=== PATIENT | male | born 1960 | race Caucasian/White ===

== ENCOUNTER → 2018-03-26 | Outpatient (CLI) | payer OTHER ==
[2018-03-26 13:48] LABS: APPEARANCE, URINE CLEAR (CLEAR); BACTERIA, URINE AUTO NEGATIVE (NEGATIVE); BILIRUBIN, URINE AUTO NEGATIVE (NEGATIVE); BLOOD, URINE BLOOD NEGATIVE (NEGATIVE); COLOR, URINE YELLOW (YELLOW); GLUCOSE, URINE (UA) AUTO NEGATIVE (NEGATIVE); KETONE, URINE AUTO NEGATIVE (NEGATIVE); LEUKOCYTE ESTERASE, URINE AUTO NEGATIVE (NEGATIVE); MUCUS, URINE SMALL (NEGATIVE); NITRITE, URINE AUTO NEGATIVE (NEGATIVE); PROTEIN, URINE AUTO NEGATIVE (NEGATIVE); RBC, URINE AUTO 0 /HPF (0-3); SQUAMOUS EPITHELIAL CELL UR AU 0 /HPF (0-6); UROBILINOGEN, URINE AUTO 0.2 mg/dL (0.0-2.0); WBC, URINE AUTO 1 /HPF (0-3)
[2018-03-26 14:31] LABS: PSA SCREENING 1.85 NG/ML (< 4.0)
== END ==
LOC: M SMT 11:45
DX: Z12.5 Encounter for screening for malignant neoplasm of prostate (principal); N41.0 Acute prostatitis
CPT/HCPCS: 84153

== ENCOUNTER → 2019-05-23 | Outpatient (REF) | payer OTHER | LOC: M LABSMT 13:48 | PROVIDERS: ATTEND Nurse Practitioner Women's Health | DX: Z12.5 Encounter for screening for malignant neoplasm of prostate (principal) ==

== ENCOUNTER → 2019-07-28 | Outpatient (CLI) | payer OTHER ==
[~2019-07-28] MED LIST: ISOVUE-370 76% 100ML VIAL (Q9967) As Ordered ONE
--- NOTE | 2019-07-28 08:51 | REPVR ---
PROCEDURE INFORMATION: Exam: CT Neck With Contrast Exam date and time: 07/28/2019 8:13 AM Age: 58 years old Clinical indication: Pain; Other: Benign neoplasm of tonsil TECHNIQUE: Imaging protocol: Computed tomography images of the neck with intravenous contrast. Radiation optimization: All CT scans at this facility use at least one of these dose optimization techniques: automated exposure control; mA and/or kV adjustment per patient size (includes targeted exams where dose is matched to clinical indication); or iterative reconstruction. Contrast material: ISOVUE 370; Contrast volume: 75 ml; Contrast route: IV; COMPARISON: No relevant prior studies available. FINDINGS: Nasopharynx: Unremarkable. Oropharynx: There is increased nodularity and thickening of the right lingual tonsils with effacement of the right pre epiglottic fat. Hypopharynx: Unremarkable. Larynx: Unremarkable. Normal epiglottis. Retropharyngeal space: Unremarkable. Submandibular/Parotid glands: Normal. Glands are normal in size. Thyroid: Normal. No enlarged or calcified nodules. Lymph nodes: Unremarkable. No lymphadenopathy. Trachea: Visualized trachea is unremarkable. Lungs: Unremarkable as visualized. Bones/joints: Unremarkable. No acute fracture. Soft tissues: Unremarkable. No significant soft tissue swelling. IMPRESSION: Increased nodularity and thickening of the right lingual tonsils. Direct inspection by ENT is recommended as indicated. Electronically signed by: Sima Boykin On 07/28/2019 08:51:04 AM
== END ==
LOC: M RAD 07:44
PROVIDERS: ATTEND Specialist
DX: D10.4 Benign neoplasm of tonsil (principal)
CPT/HCPCS: 70491; Q9967

== ENCOUNTER → 2019-10-31 | Outpatient (REF) | payer OTHER | LOC: M LAB REF 15:28 | PROVIDERS: ATTEND Specialist | DX: D10.4 Benign neoplasm of tonsil (principal) ==

== ENCOUNTER 2023-07-24 08:38 | Emergency (ER) | payer OTHER ==
[~2023-07-24] VITALS: Ht 175.3 cm; Wt 91.6 kg
[2023-07-24] MEDS ORDERED: ASPI81CH33 PO (08:57)
[2023-07-24 09:26] LABS: BASO % 0.6 % (0.0-1.0); EOS % 0.6 % (0.0-3.0); HEMATOCRIT 47.3 % (42.0-52.0); HEMOGLOBIN 16.2 g/dl (13.5-17.5); LYMPH # 2.2 10^3/uL (1.5-5.0); LYMPH % 30.4 % (24.0-44.0); MEAN CORPUSCULAR HEMOGLOBIN 29.9 pg (27.0-33.0); MEAN CORPUSCULAR HGB CONC 34.2 g/dl (32.0-36.5); MEAN CORPUSCULAR VOLUME 87.4 fl (80.0-96.0); MONO # 0.5 10^3/uL (0.0-0.8); NEUTROPHILS # 4.4 10^3/uL (1.5-8.5); NEUTROPHILS % 61.1 % (36.0-66.0); PLATELET COUNT, AUTOMATED 255 10^3/uL (150-450); RED BLOOD COUNT 5.41 10^6/uL (4.30-6.10); WHITE BLOOD COUNT 7.2 10^3/uL (4.0-10.0)
[2023-07-24] MEDS: ASPIRIN 81MG CHEW TABLET PO ONE (09:49)
[2023-07-24 09:52] LABS: LIPASE 50 U/L (12-53)
[2023-07-24 09:54] LABS: ALKALINE PHOSPHATASE 55 U/L (46-116); ALT/SGPT 46 U/L (7.0-40); AST/SGOT 31 U/L (<34); BILIRUBIN,DIRECT 0.2 MG/DL (<0.4); BILIRUBIN,TOTAL 0.8 MG/DL (0.3-1.2); BLOOD UREA NITROGEN 17 MG/DL (9-23); CALCIUM LEVEL 8.7 MG/DL (8.3-10.6); CARBON DIOXIDE LEVEL 27 MMOL/L (20-31); CHLORIDE LEVEL 106 MMOL/L (98-107); CK-MB VALUE MASS 3.5 NG/ML (<3.6); CREATININE FOR GFR 1.13 MG/DL (0.70-1.30); GLOMERULAR FILTRATION RATE > 60.0 (>49); GLUCOSE, FASTING 109 MG/DL (74-106); POTASSIUM SERUM 4.5 MMOL/L (3.5-5.1); SODIUM LEVEL 137 MMOL/L (136-145)
[2023-07-24 09:56] LABS: FREE T4 0.96 NG/DL (0.89-1.76); THYROID STIMULATING HORMONE 4.786 uIU/ML (0.55-4.78)
[2023-07-24 10:00] LABS: CPK CREATINE PHOSPHOKINASE 106 U/L (46-171)
[2023-07-24] MEDS: NS 1,000 ML IV ONE (10:00)
[2023-07-24] MEDS ORDERED: ISOVUE-370 76% 100ML VIAL As Ordered ONE (10:01)
[2023-07-24] MEDS: NITROGLYCERIN 2% OINT 1 GM *U/D* PKT TOP ONE (10:18)
[2023-07-24 10:49] VITALS: BP 179/83
[2023-07-24] MEDS: FAMOTIDINE 20 MG TAB PO ONE (10:49)
[2023-07-24] MEDS: CLOPIDOGREL 300 MG TAB (PLAVIX) PO ONE (10:49)
[2023-07-24] MEDS: METOPROLOL TART 25 MG TABLET PO ONE (10:49)
[2023-07-24] MEDS: HEPARIN SOD (PORCINE) 5000UNITS/ML 1ML VIAL/SYRINGE IV ONE (10:52)
[2023-07-24] MEDS: HEPARIN DRIP 25,000 UNITS in IV 1 EA IV SCH (10:54)
[2023-07-24 11:08] LABS: INR 1.09; PROTHROMBIN TIME 13.8 SECONDS (12.5-14.5)
[2023-07-24 11:12] LABS: CK-MB VALUE MASS 3.5 NG/ML (<3.6)
[2023-07-24 11:17] LABS: MB/CK RELATIVE INDEX 4.21 (< OR =4)
[2023-07-24 11:25] VITALS: BP 158/92; TEMP 97.6; O2SAT 95
[2023-07-24 11:26] LABS: RSV AMPLIFICATION NEGATIVE (NEGATIVE)
== END 2023-07-24 11:27 | disposition short-term general hospital (02) ==
LOC: M ED 08:38
DX: I21.4 Non-ST elevation (NSTEMI) myocardial infarction (principal); Z82.49 Family history of ischemic heart disease and other diseases of the circulatory system
CPT/HCPCS: 71045; 71275; 80047; 80048; 80076; 82550; 82553; 83690; 83880; 84439; 84443; 85025; 85610; 85730; 87631; 93005; 93041; 94760; 96365; 99285; Q9967

== ENCOUNTER → 2023-08-16 | Outpatient (CLI) | payer OTHER ==
[~2023-08-16] MED LIST changes: +ASPI81CH33 PO; -ISOVUE-370 76% 100ML VIAL (Q9967) As Ordered ONE
== END ==
LOC: M RAD 10:22
PROVIDERS: ATTEND Physician Assistant
DX: R05.9 Cough, unspecified (principal); R91.8 Other nonspecific abnormal finding of lung field

== ENCOUNTER → 2023-09-20 | Outpatient (CLI) | payer OTHER ==
[2023-09-20 11:03] LABS: ALBUMIN 3.7 G/DL (3.2-5.2); ALKALINE PHOSPHATASE 70 U/L (46-116); ALT/SGPT 25 U/L (7.0-40); AST/SGOT 19 U/L (<34); BILIRUBIN,TOTAL 0.8 MG/DL (0.3-1.2); BLOOD UREA NITROGEN 15 MG/DL (9-23); CALCIUM LEVEL 9.3 MG/DL (8.3-10.6); CARBON DIOXIDE LEVEL 27 MMOL/L (20-31); CHLORIDE LEVEL 106 MMOL/L (98-107); CHOLESTEROL LEVEL 131 MG/DL (<200); CHOLESTEROL RISK RATIO 3.76 (<5); GLOMERULAR FILTRATION RATE > 60.0 (>49); GLUCOSE, FASTING 99 MG/DL (74-106); HDL CHOLESTEROL 34.8 MG/DL (>40); LDL CHOLESTEROL 68.6 MG/DL (<100); NON-HDL-C 96.2 MG/DL; POTASSIUM SERUM 4.5 MMOL/L (3.5-5.1); SODIUM LEVEL 141 MMOL/L (136-145); TOTAL PROTEIN 8.1 G/DL (5.7-8.2); TRIGLYCERIDES LEVEL 138 MG/DL (<150)
== END ==
LOC: M LAB 09:23
PROVIDERS: ATTEND Internal Medicine Cardiovascular Disease
DX: E78.5 Hyperlipidemia, unspecified (principal); I25.10 Atherosclerotic heart disease of native coronary artery without angina pectoris; I25.84 Coronary atherosclerosis due to calcified coronary lesion

== ENCOUNTER → 2023-09-20 | Outpatient (CLI) | payer OTHER ==
[2023-09-20 10:43] LABS: HEMOGLOBIN A1c 5.6 % (4.0-6.0)
[2023-09-20 11:01] LABS: CREATININE, URINE 200.2 MG/DL; MAU/CREAT RATIO 1.9 MCG/MG (0.0-30.0)
[2023-09-20 11:04] LABS: THYROID STIMULATING HORMONE 3.504 uIU/ML (0.55-4.78)
[2023-09-20 11:05] LABS: TOTAL 25(OH) VITAMIN D 31.3 NG/ML (20.0-100.0)
[2023-09-20 11:30] LABS: HIV 1&2 SCREEN NEGATIVE (NEGATIVE)
[2023-09-20 11:37] LABS: HEPATITIS C VIRUS ABY INDEX 0.38 INDEX (<0.8)
== END ==
LOC: M RAD 09:25
PROVIDERS: ATTEND Physician Assistant
DX: J90 Pleural effusion, not elsewhere classified (principal); Z11.9 Encounter for screening for infectious and parasitic diseases, unspecified; E55.9 Vitamin D deficiency, unspecified; E66.3 Overweight; I10 Essential (primary) hypertension

== ENCOUNTER 2024-06-12 08:14 | Day surgery (SDC) | payer OTHER ==
[~2024-06-12] VITALS: Ht 175.3 cm; Wt 94.8 kg
[~2024-06-12 08:14] MED LIST changes: +ATOR80TA59 PO; +CLOP75TA2 PO; +LISI5TAB11 PO; +METO25TA4 PO; +NS 250 ML IV ONE
[2024-06-12 09:33] VITALS: TEMP 98
[2024-06-12 09:55] VITALS: BP 125/59; O2SAT 95
== END 2024-06-12 09:57 | disposition home or self-care (01) ==
LOC: M OPP 08:14
PROVIDERS: ATTEND Surgery
DX: Z12.11 Encounter for screening for malignant neoplasm of colon (principal); D12.6 Benign neoplasm of colon, unspecified; I25.10 Atherosclerotic heart disease of native coronary artery without angina pectoris; I10 Essential (primary) hypertension; I25.2 Old myocardial infarction; E78.00 Pure hypercholesterolemia, unspecified; Z79.82 Long term (current) use of aspirin; Z79.899 Other long term (current) drug therapy